=== PATIENT | male | born 1970 | race American Indian/Alaskan Native ===

== ENCOUNTER 2020-04-16 10:50 | Emergency (ER) | payer SELFPAY ==
[2020-04-16 10:56] VITALS: BP 136/89
--- NOTE | 2020-04-16 11:07 | Event Note ---
ED Screening Note Date of service: 04/16/20 Time: 11:06 ED Screening Note: lower abdominal pain x 1 month. Constipated. This initial assessment/diagnostic orders/clinical plan/treatment(s) is/are subject to change based on patients health status, clinical progression and re- assessment by fellow clinical providers in the ED. Further treatment and workup at subsequent clinical providers discretion. Patient/guardian urged not to elope from the ED as their condition may be serious if not clinically assessed and managed. Initial orders include: cbc, cmp, lipase, urinalysis
--- NOTE | 2020-04-16 12:00 | Emergency Department Report ---
ED General Adult HPI - General Chief complaint: Abdominal Pain Stated complaint: STOMACH PAIN PUI?: No Time Seen by Provider: 04/16/20 11:55 Source: patient Mode of arrival: Ambulatory Limitations: No Limitations - History of Present Illness Initial comments: 49-year-old male present with chief complaint of abdominal pain, gradual onset over the past 4 to 5 weeks, constant daily, associated with constipation but no vomiting or nausea. Denies any fevers. Pain is primarily in the left lower quadrant of the abdomen. No worsening of pain in the past few days just consistent over the past several weeks. States that he had a small bowel movement today but has been a while since he has had a normal 1. Denies any other associated complaints. Pain is mild to moderate, no alleviating or exacerbating factors. - Related Data Previous Rx's Medication Instructions Recorded Last Taken Type Hyoscyamine Subl [Levsin Sl 0.125 0.125 mg SL Q6HR PRN #12 tab 04/16/20 Unknown Rx TAB] Polyethylene Glycol 3350 [Miralax] 17 gm PO DAILY #1 bottle 04/16/20 Unknown Rx Allergies Allergy/AdvReac Type Severity Reaction Status Date / Time No Known Allergies Allergy Unverified 04/16/20 10:53 ED Review of Systems ROS: Stated complaint: STOMACH PAIN Other details as noted in HPI Comment: All other systems reviewed and negative Gastrointestinal: as per HPI ED Past Medical Hx - Past Medical History Additional medical history: hiv - Surgical History Past Surgical History?: No - Social History Smoking Status: Never Smoker Substance Use Type: None - Medications Home Medications: Home Medications Medication Instructions Recorded Confirmed Last Taken Type Hyoscyamine Subl [Levsin Sl 0.125 0.125 mg SL Q6HR PRN #12 tab 04/16/20 Unknown Rx TAB] Polyethylene Glycol 3350 [Miralax] 17 gm PO DAILY #1 bottle 04/16/20 Unknown Rx ED Physical Exam - General Limitations: No Limitations General appearance: alert, in no apparent distress - Head Head exam: Present: atraumatic, normocephalic - Eye Eye exam: Present: normal appearance - ENT ENT exam: Present: mucous membranes moist - Neck Neck exam: Present: normal inspection - Respiratory Respiratory exam: Present: normal lung sounds bilaterally. Absent: respiratory distress - Cardiovascular Cardiovascular Exam: Present: regular rate, normal rhythm. Absent: systolic murmur, diastolic murmur, rubs, gallop - GI/Abdominal GI/Abdominal exam: Present: soft, tenderness (Minimal left lower quadrant suprapubic discomfort), normal bowel sounds. Absent: guarding - Rectal Rectal exam: Present: deferred - Extremities Exam Extremities exam: Present: normal inspection - Back Exam Back exam: Present: normal inspection - Neurological Exam Neurological exam: Present: alert, oriented X3 - Psychiatric Psychiatric exam: Present: normal affect, normal mood - Skin Skin exam: Present: warm, dry, intact, normal color. Absent: rash ED Course Vital Signs 04/16/20 10:54 Temperature 98.3 F Pulse Rate 78 Respiratory 19 Rate Blood Pressure 136/89 O2 Sat by Pulse 94 Oximetry ED Medical Decision Making - Lab Data Result diagrams: 04/16/20 11:50 04/16/20 11:50 - Radiology Data Radiology results: report reviewed Negative CT abdomen pelvis, negative KUB - Medical Decision Making Patient with abdominal pain ongoing for 4 to 5 weeks with associated constipation. On exam there is very mild left lower quadrant and suprapubic tenderness. Labs, CT pending. Differential diagnoses includes constipation, diverticulitis, malignancy. CTs are negative, recommend GI follow-up for colonoscopy. - Differential Diagnosis Constipation, diverticulitis, malignancy Critical care attestation.: If time is entered above; I have spent that time in minutes in the direct care of this critically ill patient, excluding procedure time. ED Disposition Clinical Impression: Abdominal pain Qualifiers: Abdominal location: unspecified location Qualified Code(s): R10.9 - Unspecified abdominal pain Disposition: TO HOME OR SELFCARE Is pt being admited?: No Condition: Good Instructions: Abdominal Pain, Adult Prescriptions: Hyoscyamine Subl [Levsin Sl 0.125 TAB] 0.125 mg SL Q6HR PRN #12 tab PRN Reason: abdominal pain Polyethylene Glycol 3350 [Miralax] 17 gm PO DAILY #1 bottle Referrals: PRIMARY CAREMD [Primary Care Provider] - 3-5 Days SHAYY LANDRUM MD [Staff Physician] - 3-5 Days Time of Disposition: 13:57
[2020-04-16 12:15] LABS: Bilirubin,Urine NEG (Negative); Blood,Urine NEG (Negative); Color,Urine Yellow (Yellow); Mucus,Urine FEW /HPF; Protein,Urine <15 mg/dL mg/dL (Negative); Urobilinogen,Urine < 2.0 mg/dL (<2.0); WBC,Urine < 1.0 /HPF (0.0-6.0)
--- NOTE | 2020-04-16 12:21 | XRay Report ---
ABDOMEN 1 VIEW 04/16/2020 11:11 AM INDICATION / CLINICAL INFORMATION: abd pain. COMPARISON: None available. FINDINGS: TUBES / LINES: None. BOWEL GAS PATTERN: No significant abnormality. FREE AIR / EXTRALUMINAL GAS: None. ADDITIONAL FINDINGS: No significant additional findings. IMPRESSION: 1. No significant abnormality. Signer Name: Damien Abraham MD Signed: 04/16/2020 12:16 PM Workstation Name: [id number]
[2020-04-16 12:33] LABS: Basophils % (Auto) 0.8 % (0.0-1.8); Hematocrit 40.6 % (35.5-45.6); Hemoglobin 13.7 gm/dl (11.8-15.2); Lymphocytes # (Auto) 1.4 K/mm3 (1.2-5.4); Lymphocytes % (Auto) 32.6 % (13.4-35.0); Mean Corpuscular HGB Conc 34 % (32-34); Mean Corpuscular Volume 91 fl (84-94); Monocytes # (Auto) 0.4 K/mm3 (0.0-0.8); Monocytes % (Auto) 8.5 % (0.0-7.3); Platelet Count 214 K/mm3 (140-440); Red Blood Count 4.47 M/mm3 (3.65-5.03); Red Cell Distribution Width 13.4 % (13.2-15.2)
[2020-04-16 12:50] LABS: Alanine Aminotransferase 13 units/L (7-56); Albumin 4.3 g/dL (3.9-5); BUN/Creatinine Ratio 8; Bilirubin,Direct 0.2 mg/dL (0-0.2); Blood Urea Nitrogen 10 mg/dL (9-20); Calcium 9.3 mg/dL (8.4-10.2); Hemolysis Index 5
--- NOTE | 2020-04-16 13:34 | Cat Scan Report ---
CT ABDOMEN AND PELVIS WITHOUT CONTRAST HISTORY: llq pain COMPARISON: None. TECHNIQUE: Axial CT images were obtained through the abdomen and pelvis without IV contrast. Sagittal and coronal reformatted images. All CT scans at this location are performed using CT dose reduction for ALARA by means of automated exposure control. FINDINGS: CT ABDOMEN: Lung Bases: Clear. Liver: No significant abnormality. Biliary: No significant abnormality. Spleen: No significant abnormality. Unenlarged. Pancreas: No significant abnormality. Adrenals: No significant abnormality. Kidneys: There are scattered calyceal stones in both kidneys, right greater than left. No ureteral st ones or hydronephrosis. 2.2 cm cyst in the mid right kidney. Lymphatics: No lymphadenopathy. Vasculature: No significant abnormality. Bowel/Peritoneum: No significant abnormality. No free air. No free fluid. Normal appendix. CT PELVIS: : No significant abnormality. Osseous Structures: No significant abnormality. Additional Findings: Small umbilical hernia containing fat. IMPRESSION: No acute process. Bilateral nephrolithiasis, nonobstructing. Small umbilical hernia containing fat. Signer Name: Tito Butler Jr, MD Signed: 04/16/2020 1:29 PM Workstation Name: [id number]
== END 2020-04-16 14:05 | disposition home or self-care (01) ==
LOC: ED 10:50
DX: R10.9 Unspecified abdominal pain (principal); Z79.899 Other long term (current) drug therapy
CPT/HCPCS: 36415; 74018; 74176; 80048; 80076; 81001; 83690; 85025